=== PATIENT | female | born 1970 | race Two or more races ===

== ENCOUNTER 2018-04-07 15:20 | Emergency (ER) | payer OTHER ==
[~2018-04-07] VITALS: Ht 162.6 cm; Wt 75.3 kg
[2018-04-07 15:40] VITALS: BP 127/63
[2018-04-07] MEDS ORDERED: BACITRACIN TOP OINT 1 UD PKG TOP ONE (17:30)
[2018-04-07] MEDS ORDERED: TETANUS-DIPTH-ACEL PERTUSSIS 0.5ML SYRG IM ONE (17:30)
[2018-04-07] MEDS ORDERED: LIDOCAINE 1% (LOCAL ANESTH.) PF 5ml SDV ID ONE (17:30)
== END 2018-04-07 18:32 | disposition home or self-care (01) ==
LOC: ER 15:30
DX: S61.012A Laceration without foreign body of left thumb without damage to nail, initial encounter (principal); W26.9XXA Contact with unspecified sharp object(s), initial encounter; Y93.89 Activity, other specified; Y99.8 Other external cause status; Y92.89 Other specified places as the place of occurrence of the external cause
CPT/HCPCS: 12001; 73130; 90471; 90715

== ENCOUNTER 2018-04-13 17:59 | Emergency (ER) | payer OTHER ==
[~2018-04-13] VITALS: Ht 160 cm; Wt 75.7 kg
[2018-04-13 18:16] VITALS: BP 100/64
== END 2018-04-13 22:20 | disposition left against medical advice (07) ==
LOC: ER 18:05
DX: S61.012D Laceration without foreign body of left thumb without damage to nail, subsequent encounter (principal); X58.XXXD Exposure to other specified factors, subsequent encounter